=== PATIENT | female | born 1975 | race Caucasian/White ===

== ENCOUNTER 2016-11-25 23:26 | Emergency (ER) | payer OTHER ==
[2016-11-25 23:37] VITALS: BP 121/93
[2016-11-25] MEDS ORDERED: ORPHENADRINE CITRATE 60 MG/2 ML VIAL. ONE (23:57)
[2016-11-25] MEDS ORDERED: HYDROcodone/APAP 5/325MG 1 TAB TABLET ONE (23:57)
[2016-11-25] MEDS ORDERED: KETOROLAC 60 MG/2 ML VIAL. IM ONE (23:58)
--- NOTE | 2016-11-26 00:06 | PHYS DOC ---
Past History Past Medical History: Cancer, GERD, Other Past Surgical History: , Tubal ligation, Other Alcohol Use: Occasionally Drug Use: None Adult General Chief Complaint Chief Complaint: LOWER BACK PAIN [facility] HPI 41-year-old female with a history of chronic low back pain which she manages with Flexeril and ibuprofen now complaining of exacerbation of low back pain beyond her baseline of typical symptoms. No recent injury or identifiable causative event. Patient with normal bowel and bladder habits and no other complaints. Pain is reproducible with movement and bending. She was unable to sleep this evening. No bowel or bladder incontinence. Normal strength sensation and use of bilateral lower extremities. Patient had a recent MRI and the results showed no significant herniation or spinal canal compression no surgical indications. It was essentially a negative study Review of Systems Review of Systems Constitutional: Denies fever or chills [] Eyes: Denies change in visual acuity, redness, or eye pain [] HENT: Denies nasal congestion or sore throat [] Respiratory: Denies cough or shortness of breath [] Cardiovascular: No additional information not addressed in HPI [] GI: Denies abdominal pain, nausea, vomiting, bloody stools or diarrhea [] : Denies dysuria or hematuria [] Musculoskeletal: Denies back pain or joint pain [] Integument: Denies rash or skin lesions [] Neurologic: Denies headache, focal weakness or sensory changes [] Endocrine: Denies polyuria or polydipsia [] Allergies Allergies Allergies Coded Allergies Type Severity Reaction Last Updated Verified No Known Drug Allergies 02/08/15 No Physical Exam Physical Exam Well-appearing 41-year-old female in no acute distress. Exam benign except bilateral paraspinal soft tissue tenderness and spasm in the lumbar distribution. No midline or bony tenderness. No step-off.. No saddle anesthesia. Normal and symmetrical strength sensation and reflexes bilateral lower extremities Constitutional: Well developed, well nourished, no acute distress, non-toxic appearance. [] HENT: Normocephalic, atraumatic, bilateral external ears normal, oropharynx moist, no oral exudates, nose normal. [] Eyes: PERRLA, EOMI, conjunctiva normal, no discharge. [] Neck: Normal range of motion, no tenderness, supple, no stridor. [] Cardiovascular:Heart rate regular rhythm, no murmur [] Lungs & Thorax: Bilateral breath sounds clear to auscultation [] Abdomen: Bowel sounds normal, soft, no tenderness, no masses, no pulsatile masses. [] Skin: Warm, dry, no erythema, no rash. [] Back: No tenderness, no CVA tenderness. [] Extremities: No tenderness, no cyanosis, no clubbing, ROM intact, no edema. [] Neurologic: Alert and oriented X 3, normal motor function, normal sensory function, no focal deficits noted. [] Psychologic: Affect normal, judgement normal, mood normal. [] Current Patient Data Vital Signs Vital Signs Date Time Temp Pulse Resp B/P (MAP) Pulse Ox O2 Delivery O2 Flow Rate FiO2 11/25/16 23:37 98.2 88 20 96 Room Air EKG EKG [] Radiology/Procedures Radiology/Procedures [] Course & Med Decision Making Course & Med Decision Making Pertinent Labs and Imaging studies reviewed. (See chart for details) Signs and symptoms consistent with lumbar strain and spasm the patient with chronic back pain now with an acute exacerbation thereof. Inflammatory medication and antispasmodic given as well as narcotic analgesic in ED. Patient feels improved and no further workup or treatment indicated at this time. No clinical findings to suggest cauda equina syndrome or any other neurologic emergency. He feels that her pain will be manageable at home with her normal Flexeril and ibuprofen and that no narcotic prescription is not necessary this evening. If exacerbations of her pain recur she will follow-up with her doctor for further pain control. [] Dragon Disclaimer Dragon Disclaimer This chart was dictated in whole or in part using Voice Recognition software in a busy, high-work load, and often noisy Emergency Department environment. It may contain unintended and wholly unrecognized errors or omissions. Departure Departure: Disposition: HOME, SELF-CARE Condition: IMPROVED Referrals: FABBY BOOTH MD (PCP) Patient Instructions: Back Pain, Adult, Low Back Strain with Rehab-Sports[facility] Additional Instructions: Your findings today suggests that U R having back pain beyond her baseline because of likely strain of the muscles in your lumbar area. U have some muscle spasm associated with this as well. Take 800 mg of ibuprofen every 6 hours as needed for pain and usually her Flexeril as needed for muscle spasm. Ice helpful for acute exacerbations of pain like this. He been given a dose of narcotic analgesic in the emergency department sooner do not drink any alcohol in addition to this this evening. Follow-up with your doctor tomorrow for reevaluation and to discuss further pain control as needed. Return immediately for new severe or worsening symptoms SIMÓN HALE MD Nov 26, 2016 00:06
[2016-11-26] MEDS ORDERED: HYDROcodone/APAP 5/325MG 1 TAB TABLET PO ONE (00:15)
[2016-11-26] MEDS ORDERED: ORPHENADRINE CITRATE 60 MG/2 ML VIAL. IM ONE (00:15)
[2016-11-26] MEDS ORDERED: KETOROLAC 60 MG/2 ML VIAL. IM ONE (00:15)
== END 2016-11-26 00:20 | disposition home or self-care (01) ==
LOC: ER 23:26
DX: G89.29 Other chronic pain (principal); M54.5 Low back pain; K21.9 Gastro-esophageal reflux disease without esophagitis
CPT/HCPCS: 96372; 99284; J1885; J2360